=== PATIENT | male | born 1985 | race Asian ===

== ENCOUNTER 2019-04-06 05:04 | Emergency (ER) | payer SELFPAY ==
[~2019-04-06] VITALS: Ht 172.7 cm; Wt 66.7 kg
--- NOTE | 2019-04-06 05:23 | NUR ---
ED Nurse Note: pt walked in c/o fast heartrate, pt reports he took two unisom pills to go to sleep and when he woke up he notice his heart was beating fast and when he took heartrate with his phone it was 130. pt currently HR at 60. denies cp, denies sob, will cont monitor. pt AA&ox4, gcs=15, resp even and unlabored on RA, vss, ambulatory w/ steady gait.
[2019-04-06 05:24] VITALS: BP 140/91
--- NOTE | 2019-04-06 05:31 | Emergency Room Report ---
History of Present Illness General Chief Complaint: General Complaint Source: Patient Present Illness HPI This is a 33-year-old male with no past medical history. Her chief complaint of palpitation. He took 2 Unisom pills tonight for sleep. He woke up feeling drowsy. He also said his heart was beating fast. He measured his heart rate on his phone and it was 103. He was concerned so he came in. Denies any suicidal thoughts some sort of thought. Denies any dizziness. Denies any syncope. Also with dry mouth. [place] better now. Allergies: Coded Allergies: No Known Allergies (Unverified , 04/06/19) Patient History Past Medical History: see triage record, old chart reviewed Past Surgical History: none Pertinent Family History: none Social History: Denies: smoking Immunizations: other Reviewed Nursing Documentation: PMH: Agreed; PSxH: Agreed Nursing Documentation-PMH Past Medical History: No Stated History Review of Systems Eye: Denies: eye pain, blurred vision ENT: Denies: ear pain, nose congestion, throat swelling Respiratory: Denies: cough, shortness of breath Cardiovascular: Reports: palpitations; Denies: chest pain Gastrointestinal: Denies: abdominal pain, diarrhea, nausea, vomiting Musculoskeletal: Denies: back pain, joint pain Skin: Denies: rash Neurological: Denies: headache, numbness Endocrine: Denies: increased thirst, increased urine Hematologic/Lymphatic: Denies: easy bruising All Other Systems: negative except mentioned in HPI Physical Exam Vital Signs Date Time Temp Pulse Resp B/P (MAP) Pulse Ox O2 Delivery O2 Flow Rate FiO2 04/06/19 05:12 98.1 64 18 140/91 (107) 97 Room Air Vitals normal Sp02 EP Interpretation: reviewed, normal General Appearance: well appearing, no apparent distress, alert Head: normocephalic, atraumatic Eyes: bilateral eye PERRL, bilateral eye EOMI ENT: hearing grossly normal, normal pharynx Neck: full range of motion, supple, no meningismus Respiratory: chest non-tender, lungs clear, normal breath sounds Cardiovascular #1: regular rate, rhythm, no murmur Gastrointestinal: normal bowel sounds, non tender, no mass, no organomegaly, no bruit, non-distended Musculoskeletal: back normal, gait/station normal, normal range of motion Psychiatric: mood/affect normal Medical Decision Making Diagnostic Impression: Primary Impression: Palpitations ER Course Patient presents with palpitation. Most likely side effect of his sleeping medication. He has some mild anticholinergic symptoms. Will discharge home. No evidence of ACS, PE, dissection. Last Vital Signs Date Time Temp Pulse Resp B/P (MAP) Pulse Ox O2 Delivery O2 Flow Rate FiO2 04/06/19 05:12 98.1 64 18 140/91 (107) 97 Room Air Status: improved Disposition: HOME, SELF-CARE Condition: Stable Additional Instructions: Follow-up with your doctor in 7 days. Return if worse Isael York MD Apr 06, 2019 05:31
[2019-04-06 05:36] VITALS: BP 120/86
--- NOTE | 2019-04-06 05:37 | NUR ---
ED Nurse Note: pt cleared to be d/c per ERMD, pt discharge and aftercare instruction provided, pt advised to follow up with pcp or return to ed if changes in condition, vss, ambulatory w/ steady gait, left w/ all belongings.
--- NOTE | 2019-04-07 14:43 | Cardiology Report ---
APPROVED REPORT EKG Measurement Heart [id number] Sinus bradycardia Otherwise normal ECG
== END 2019-04-06 06:00 | disposition home or self-care (01) ==
LOC: EMR 05:57
DX: R00.2 Palpitations (principal)
CPT/HCPCS: 93005; 99281